=== PATIENT | male | born 1955 | race Caucasian/White ===

== ENCOUNTER 2023-06-29 10:30 | Outpatient (RCR) | payer MEDICARE, SELFPAY ==
--- NOTE | 2023-06-04 15:01 | OPREHPOC ---
Outpatient Therapy Plan of Care This is a Multidisciplinary Plan of Care that may contain components documented by all disciplines (PT, OT, and ST.) PT Problem 1 PT Problem #1 Knowledge Deficit PT Goal 1 Goal [place] with hip strengthening HEP PT Problem 2 PT Problem #2 Impaired Gait PT Goal 1 Goal Demonstrate even stride length bilaterally with resolution of compensated Trendelenburg PT Problem 3 PT Problem #3 Impaired Balance PT Goal 1 Goal Demonstrate ability to maintain single leg stance for 10 seconds bilaterally for improved single leg stability during gait sequence PT Goal 2 Goal Demonstrate ability to maintain balance on foam with eyes closed for 30s indicating improved vestibular assistance during balance activity
--- NOTE | 2023-06-04 15:03 | PTOPEVAL1 ---
Assessment and note entered by Rojas Sanchez, PT Evaluation Information Assessment Status Evaluation Diagnosis Abnormal Gait and Mobility Onset 03/04/23 Subjective Information Reports that he has had multiple falls, both involved tripping incidents. Denies any acute weakness or legs giving out. He has been active and able to mow his lawn but has vision issues. states that he shuffles a lot and catches his feet on the rug. Weakness and shuffling gets worse in the afternoon. They have stairs in their home and is really worried about him going up and down. Reported Pain Level Pain Score 0: Self Report Assessment PT Clinical Summary Mr. Seals overall demonstrates minimal fall risk with testing this date. He did however present with significant vestibular balance difficulty when presented with eyes closed uneven surface. With his cognitive history and subjective reports he does reflect hip weakness and possible increased symptoms in PM activity per . Patient will benefit from skilled therapy to address deficits and ensure safety with home mobility. Plan of Care Interventions Gait Training,Manual Therapy,Neuro Re-education, Patient/Caregiver Education,Therapeutic Activities, Therapeutic Exercise PT Services Indicated Yes Treatment Frequency and 1-2x/week for 4 weeks Duration These treatments will address the objective and functional deficits as defined above. The patient will be advanced safely and appropriately in order for the patient to progress towards his/her prior level of function. Additional exercises will be introduced and as well as a comprehensive home exercise program upon discharge, if needed, ?to ensure carryover of functional gains achieved in the clinic. This treatment plan has been reviewed and agreement upon by the patient.
--- NOTE | 2023-07-05 11:25 | PTOPDC ---
Assessment and note entered by Coreen Cortez, PT Assessment Status Discharge Diagnosis Abnormal Gait and Mobility Onset 03/04/23 Subjective Information Pt's reports has had two falls since starting therapy while outside. Reports there was a tree cut down last year and the ground is not flat, pt stepped into a hole causing a fall. There was another fall in the house, but thinks he tripped over something Pt a reports not seeing much difference since starting therapy. Pt and notice a bouncing eppisode yesterday, had just come up the steps and walking in the kitchen a few steps then had a startle then continued going. Has not lessened in frequency, but reports pt does startle easily now. reports can't recall if is still shuffling in the evening, pt reports doens't feel like has been catching his feet on rugs and has put sticky on the bottom of the rugs to hold it down. Assessment PT Clinical Summary Pt demonstrates improved balance scores today, and improved strength with isolated testing. Coordination issues may be related to vision, as well as comprehension secondary to comorbidities. Pt and were educated on compensatory strategies to assist in function including increased time with steps, and use of a walking stick while on unfamiliar ground. Pt has met max benefit for physical therapy at this time, thus is being discharged from [facility].
== END 2023-07-05 11:39 | disposition home or self-care (01) ==
LOC: ANHHIPT 10:30
PROVIDERS: PCP Family Medicine; Visit Provider Family Medicine
DX: F03.90 Unspecified dementia, unspecified severity, without behavioral disturbance, psychotic disturbance, mood disturbance, and anxiety (principal); R26.89 Other abnormalities of gait and mobility; W19.XXXA Unspecified fall, initial encounter
CPT/HCPCS: 97110; 97112; 97116; 97161; 97530; 97750

== ENCOUNTER 2023-08-06 11:00 | Outpatient (RCR) | payer MEDICARE, SELFPAY ==
--- NOTE | 2023-08-06 12:05 | OTOPEVAL1 ---
Assessment and note entered by Rajan Brasher, MITESH/[place], CHT Evaluation Information Assessment Status Evaluation Subjective Information Patient presents today with his , Gloria, who helps him with his history. They report he has been having difficulties with his vision, which has been impacting his ability with ADLs - handwriting, buttoning shirts, Reported Pain Level Pain Score 0: Self Report Assessment OT Clinical Summary Patient referred to OT with dx of OA as he had been having a decline in his handwriting skills. Upon further evaluation, it appears the deficits are due to decreased visual and visual-perceptual skills as it relates to hand-eye coordination. Issued patient HEP for visual scanning and ocular ROM exercises. Plan to continue to follow up with patient to progress his HEP as tolerated and for continued functional therapeutic exercises to improve functional independence and participation with ADLs and household tasks. Plan of Care Interventions Therapeutic Exercise,Therapeutic Activities,Visual /Perceptual Retrain OT Services Indicated Yes Treatment Frequency and 0-1x/week for 4 weeks Duration These treatments will address the objective and functional deficits as defined above. The patient will be advanced safely and appropriately in order for the patient to progress towards his/her prior level of function. Additional exercises will be introduced and as well as a comprehensive home exercise program upon discharge, if needed, ?to ensure carryover of functional gains achieved in the clinic. This treatment plan has been reviewed and agreement upon by the patient.
--- NOTE | 2023-08-06 12:06 | OPREHPOC ---
Outpatient Therapy Plan of Care This is a Multidisciplinary Plan of Care that may contain components documented by all disciplines (PT, OT, and ST.) OT Problem 1 OT Problem #1 Knowledge Deficit OT Goal 1 Goal 1. Patient/ to be independent with HEP. Target Visit 4 OT Problem 2 OT Problem #2 Impaired Visual Perceptio OT Goal 1 Goal 1. Patient to be able to complete a word search. 2. Patient/ report he is able to read the weekly white board schedule at home. Target Visit 4
--- NOTE | 2023-09-03 15:06 | BUOTOPDC ---
Assessment and note entered by MITESH Bautista/[place], CHT Discharge Notification 09/02/23 Assessment Status Discharge Subjective Information Patient presents today with his , Gloria, who helps him with his history. They report he has been having difficulties with his vision, which has been impacting his ability with ADLs - handwriting, buttoning shirts. They have been working on visual HEP and working on hand writing skills. They report he has been doing better with writing, but visually he continues to have trouble seeing their weekly schedule board. Assessment OT Clinical Summary Patient referred to OT with dx of OA as he had been having a decline in his handwriting skills. Upon further evaluation, it appears the deficits are due to decreased visual and visual-perceptual skills as it relates to hand-eye coordination. Brett has been working with therapy on visual and visual perceptual skills as well as handwriting skills. There has been progress with visual scanning skills, but overall he continues to have difficulties with ADLs and reading their schedule board at home. These deficits appear to be more cognitive than physical. No further skilled OT indicated at this time. D/C with patient and spouse independent with HEP. Plan of Care Interventions Therapeutic Exercise,Therapeutic Activities,Visual /Perceptual Retrain OT Services Indicated Yes Treatment Frequency and 0-1x/week for 4 weeks Duration
== END 2023-09-08 08:36 | disposition home or self-care (01) ==
LOC: ANHHIOT 11:00
PROVIDERS: PCP Family Medicine; Visit Provider Family Medicine
DX: R26.89 Other abnormalities of gait and mobility (principal); M19.049 Primary osteoarthritis, unspecified hand
CPT/HCPCS: 97110; 97165; 97530; 99199

== ENCOUNTER 2025-09-01 13:46 | Emergency (ER) | payer MEDICARE, SELFPAY ==
--- NOTE | 2025-09-01 13:54 | ED_ITS ---
HPI - Extremity Problem General Chief complaint: Extremity Problem,Nontraumatic Stated complaint: LT Hand / Thump Pain Source: patient Mode of arrival: ambulatory Limitations: no limitations History of Present Illness HPI Narrative: 70 y/o male with hx dementia presented with who provides most of the HPI. Pt Reports left thumb pain and swelling. Onset approx 5 days. Pt was seen by pcp 08/28, prescribed cephalexin; has been taking as prescribed. then sterilized a needle at home and poked it that night, reports pus was expelled. she then she poked it today but denies drainage. Endorses the end of the finger is swollen. Patient denies pain or decreased ROM. Related Data Home Medications ?Medication ?Instructions ?Recorded ?Confirmed ?Last Taken ?Type duloxetine 60 mg capsule,delayed 60 mg PO BID 11/29/24 08/28/25 Unknown History release (Cymbalta) medical marijuana BYMOUTH 11/29/24 08/28/25 Un known History alprazolam 0.25 mg tablet (Xanax) 0.25 mg PO DAILY PRN anxiety 05/30/25 08/28/25 Unknown History Allergies Allergy/AdvReac Type Severity Reaction Status Date / Time sertraline (From Zoloft) AdvReac Intermediate Diarrhea Verified 09/01/25 13:50 Review of Systems 2 Review of Systems: CONSTITUTIONAL: Denies body aches, fever, chills, or sweats. EYES: Denies visual changes, redness, or discharge. ENT: Denies rhinorrhea, congestion CARDIOVASCULAR: Denies chest pain, palpitations, or edema. RESPIRATORY: Denies cough or dyspnea. GASTROINTESTINAL: Denies abdominal pain, nausea, vomiting, or diarrhea. SKIN: reports swelling of left thumb MUSCULOSKELETAL: Denies back pain, joint pain, or myalgia. NEUROLOGIC: Denies headache, numbness, tingling, or weakness. 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 Managed by specialist at [facility] Hand arthritis Falls Balance problem Puncture wound Cataract fragments of both eyes following cataract surgery Polycythemia Surgical History Surgical History Cholecystectomy planned 1998 Family History Family History Father Family history of diabetes mellitus in first degree relative, Onset Age: 72 Father Diabetes mellitus Mother Cancer Social History Social History Social History: 05/26/25 not confident with medical forms Smoking status: Current some day smoker Tobacco type: cigars Second hand tobacco smoke exposure: Yes Alcohol intake: current Drinks per week: 2 Alcohol use details: beer Substance use: never Substance use type: does not use Lack of Transportation: No Lack of Food: Never True Current Housing: I Have Housing Concerned About Future Housing: No Difficulty Paying Gas/Electric Bills: No Difficulty Paying for Meds: No Currently Unemployed: No Education: High School Diploma/GED Difficulty w/ Childcare or Family Care: No Living arrangements: with family Occupation/Education: retired Gender identity (if verbalized by the patient): Male Sexual Orientation (if Verbalized by the Patient): Straight or Heterosexual Spiritual care concerns: No Agree to blood products: Yes Comments At time of signature, I have reviewed and agree with nursing past medical, surgical, social and family history unless otherwise noted. Please see nursing chart for further information. There is no relevant family history pertinent to the presenting complaint Exam 2 Narrative: GENERAL: Well-appearing EYES: conjunctivae clear, and EOMI. ENT: Mucous membranes moist. Oropharynx without edema, erythema or lesions. CHEST: Clear to auscultation. HEART: Regular rate and rhythm. SKIN: Warm, dry. Left thumb radial aspect with paronychia, mild fluctuance. Localized swelling to Distal phalanx. Manual pressure expels purulent discharge at edge of nail. Pt denies tenderness with palpation. CMS intact. NEURO: Alert and oriented x3. Extrem: Hand/finger images: 1. location of paronychia and swelling Course Course Emergency Course: Patient is aware of diagnosis, understands and agrees to treatment plan. Anticipatory guidance given. Patient agrees to follow-up as directed and is aware of reasons to seek care at the emergency department. Portions of this record may have been created with voice recognition software Level of Care: Express Care Visit Vital Signs Vital signs: Reviewed Procedures Abscess I/D left thumb: Local Anesthetic: lidocaine 1% Amount of anesthesia used (mL): 1 Technique: incised with #11 blade Irrigation: No Packing used?: none I&D Results: Pus and Blood Abcess I&D Additional Comments: The procedure and its alternatives were reviewed with patient. Risks were reviewed with patient including infection and damage to nearby structures. Patient provided verbal informed consent. The patient was positioned appropriately. Local anesthesia achieved. Single straight Incision made to center of most fluctuant area. Moderate amount of thick purulent discharge expelled with manual pressure. Significant improvement in swelling of distal thumb noted. Pt tolerated the procedure well, no complications. MAGDALENA and Dressing applied per RN. MDM - Extremity (Nontraumatic) MDM Narrative Medical decision making narrative: Discussed physical exam findings with pt. Tolerated I&D, small amount purulent drainage noted. Pt will continue cephalexin as prescribed by pcp. Will culture. Advised supportive measures and signs/symptoms to go to the ER. Pt is appropriate for outpt treatment and f/u. Differential Diagnosis Differential diagnosis: Likely other (cellulitis, paronychia, osteomyelitis, contusion) Discharge Plan Discharge Clinical Impression: Paronychia of finger Qualifiers: Laterality: left Qualified Code(s): L03.012 - Cellulitis of left finger Patient Disposition: Home Condition: Stable Instructions: Antibiotic Form, Paronychia (ED) Additional Instructions: Soak your thumb in warm soapy water 3 times each day. This can help with any additional drainage that needs to come out. Raise your hand above the level of your heart as often as you can. This will help decrease swelling and pain. In the future, Apply lotion after you wash your hands to prevent your skin from becoming too dry. Tylenol as needed for pain Continue to Take antibiotic as previously directed We will call you with the culture result if the antibiotic needs to be changed Please follow-up with your primary care doctor in the next 3 days. please go to the ED for any worsening symptoms or concerns Patient Language: Maltese Prescriptions: No Action cephalexin 500 mg capsule 500 mg PO Q8H Qty: 30 0RF folic acid 1 mg tablet 1 mg PO DAILY Qty: 90 1RF duloxetine [Cymbalta] 60 mg capsule,delayed release(DR/EC) 60 mg PO BID Rx Instructions: psych medical marijuana BYMOUTH Rx Instructions: pt takes gummies for dementia/EMPLOYMENT TRAINING SPECIALIST alprazolam [Xanax] 0.25 mg tablet 0.25 mg PO DAILY PRN (Reason: anxiety) cyanocobalamin (vitamin B-12) 1,000 mcg lozenge 1,000 mcg sublingual DAILY Qty: 50 4RF cholecalciferol (vitamin D3) 125 mcg (5,000 unit) capsule 125 mcg PO DAILY Qty: 90 0RF Rx Instructions: OTC donepezil 10 mg tablet 10 mg PO DAILY Qty: 90 1RF Follow-up/Referrals: Funmi Garcia PA-C [Primary Care Provider, Family Practice]
[2025-09-01 13:56] VITALS: BP 140/88; PULSE 66; RESP 18; TEMP 36.2; O2SAT 97
== END 2025-09-01 14:45 | disposition home or self-care (01) ==
PROVIDERS: Emergency Provider Nurse Practitioner Family; PCP Physician Assistant Medical
DX: L03.012 Cellulitis of left finger (principal); F17.290 Nicotine dependence, other tobacco product, uncomplicated; G31.9 Degenerative disease of nervous system, unspecified; F02.80 Dementia in other diseases classified elsewhere, unspecified severity, without behavioral disturbance, psychotic disturbance, mood disturbance, and anxiety; F41.9 Anxiety disorder, unspecified; E55.9 Vitamin D deficiency, unspecified
CPT/HCPCS: 10060; 87070; 87186; 87205; 99213; G0463; J2003